=== PATIENT | male | born 1950 | race Caucasian/White ===

== ENCOUNTER 2019-06-15 20:47 | Observation (INO) | payer MEDICARE, OTHER ==
[~2019-06-15] VITALS: Ht 167.6 cm; Wt 67.1 kg
[~2019-06-15 20:47] MED LIST: AMIO200T61 PO; ASPI-611 PO; ATOR40TA7 PO; CLOP75TA35 PO; METO-384 PO; NITR0.4T51 SL
--- NOTE | 2019-06-15 20:53 | NUR ---
level 2 trauma called for elderly fall on blood thinners, charge account identification clerk aware and dr. patino at bedside.
--- NOTE | 2019-06-15 21:03 | NUR ---
DR. HUBER REQUEST BLOOD WORK FIRST AND DEPENDING ON DDIMER RESULT MAY ALSO SCAN PTS CHEST IN ADDITION TO HIS HEAD. WANTS TO DO ONLY ONE TRIP TO CT. PTS AT BEDSIDE. PT IS POLITE AND COOPERATIVE WITH ALL CARE.
[2019-06-15] MEDS ORDERED: morphine 4 MG/ML inj SYRINge IV ONE (21:20)
[2019-06-15 21:34] LABS: BASOPHILS % (AUTO) 0.2 % (0-1); EOSINOPHILS % (AUTO) 0 % (0-6); HEMATOCRIT 44.4 % (42.0-52.0); HEMOGLOBIN 15.4 g/dl (14.0-17.9); LYMPHOCYTES # (AUTO) 0.8 X10'3 (1.1-4.8); LYMPHOCYTES % (AUTO) 6.8 % (21-51); MEAN CORPUSCULAR HEMOGLOBIN 31.7 PG (27.0-31.0); MEAN CORPUSCULAR HGB CONC 34.8 g/dL (33.0-36.5); MEAN CORPUSCULAR VOLUME 91.2 FL (78-98); MEAN PLATELET VOLUME 10.1 FL (7.4-10.4); MONOCYTES # (AUTO) 0.4 X10'3 (0-0.9); MONOCYTES % (AUTO) 3.6 % (2-12); NEUTROPHILS # (AUTO) 10.1 X10'3 (1.8-7.7); NEUTROPHILS % (AUTO) 89.4 % (42-75); PLATELET COUNT 159 X10'3 (140-440); RED BLOOD COUNT 4.87 X10'6 (4.70-6.10); RED CELL DISTRIBUTION WIDTH 14.2 % (11.5-14.5); WHITE BLOOD COUNT 11.3 X10'3 (4.5-11.0)
[2019-06-15] MEDS ORDERED: tranexamic acid 100mg/ml inj. IV ONE (21:45)
[2019-06-15 21:48] LABS: D-DIMER 0.42 MG/L FEU (0-0.50); PARTIAL THROMBOPLASTIN TIME 22 SECONDS (22-32)
--- NOTE | 2019-06-15 21:48 | NUR ---
Pt. blood pressure drops to 83/[address] Gordon aware, orders for fluid bolus received
[2019-06-15] MEDS ORDERED: normal saline 1000ML IV soln IVB ONE ×2 (21:50→22:30)
[2019-06-15 21:53] LABS: ALANINE AMINOTRANSFERASE 36 U/L (12-78); ALBUMIN 3.7 G/DL (3.4-5.0); ALBUMIN/GLOBULIN RATIO 1.1 (1.1-1.5); ALKALINE PHOSPHATASE 112 IU/L (46-116); ANION GAP 12 (8-16); ASPARTATE AMINO TRANSFERASE 28 U/L (10-37); BILIRUBIN,TOTAL 0.3 MG/DL (0.1-1.0); CALCIUM 8.7 MG/DL (8.5-10.1); CHLORIDE 106 MMOL/L (99-107); CREATININE 1.15 MG/DL (0.60-1.10); GLUCOSE 198 MG/DL (70-104); SODIUM 139 MMOL/L (135-145); TOTAL PROTEIN 7.2 G/DL (6.4-8.2); TROPONIN I < 0.04 NG/ML (0.0-0.05); eGFR 63 ML/MIN
[2019-06-15 21:57] LABS: BLOOD UREA NITROGEN 17 MG/DL (7-18); BUN/CREATININE RATIO 14.8 (5.4-32.0)
--- NOTE | 2019-06-15 22:03 | NUR ---
Pt. BP 59/30, Dr. Gordon notified, order for 2L NS received. Pt. placed in Trendelenburg position
--- NOTE | 2019-06-15 22:10 | NUR ---
Pt. BP 106/78. Pt. in Trendelenburg position. Pt. has recieved 1L of NS bolus
[2019-06-15] MEDS ORDERED: iohexol 350MG/ML 100ml bottle IV ONE (22:37)
[2019-06-15] MEDS ORDERED: METO-395 PO (23:25)
[2019-06-16 00:35] LABS: CLARITY,URINE CLEAR (Clear); COLOR,URINE YELLOW (Yellow); GLUCOSE, URINE NEGATIVE (Neg); KETONES,URINE NEGATIVE (Neg); LEUKOCYTE ESTERASE ,URINE NEGATIVE (Neg); NITRITES, URINE NEGATIVE (Neg); OCCULT BLOOD,URINE NEGATIVE (Neg); PH,URINE 5.5 (4.8-8.0); PROTEIN,URINE NEGATIVE (Neg); UROBILINOGEN,URINE 0.2 E.U/dL (0.2-1.0)
[2019-06-16 00:37] LABS: UA COLLECTION TYPE CLN CATCH MIDSTREAM
[2019-06-16] MEDS ORDERED: normal saline 1000ML IV soln IVB ONE (01:35)
[2019-06-16 02:45] LABS: TROPONIN I < 0.04 NG/ML (0.0-0.05)
--- NOTE | 2019-06-16 02:48 | NUR ---
pt with stable vs, flu swab negative, awaiting 3 hr trop result.. 4th liter ns infused
--- NOTE | 2019-06-16 02:53 | NUR ---
dr. patino at bedside. he requests a gait test .
--- NOTE | 2019-06-16 03:34 | NUR ---
dr patino at bedside when pt ambulating. pt with a lot of pain to his right hip with ambulating, but he reports improvment as he was unable to walk at all after he first fell. He reports no dizziness, but some weakness. Pt continues with stable vs and normaltensive. md to order norco 5/325 and see how pt does, if bp ok, then Pt can be discharged home with norco for pain management. If not, Pt to likely be admitted.
[2019-06-16] MEDS ORDERED: HYDROcodone/acetaminophen 5mg/325mg tablet PO ONE (03:40)
[2019-06-16] MEDS ORDERED: magnesium 4gm in 100ml NS 100 ML IV PRN (04:30)
[2019-06-16] MEDS ORDERED: potassium CL 10mEq/100ml bag 100 ML IV PRN ×2 (04:30)
[2019-06-16] MEDS ORDERED: nitroGLYCERIN 0.4mg SUBLingual tab SL PRN (04:30)
[2019-06-16] MEDS ORDERED: mag hydrox/Alum hydrox/simeth 30ml oral suspension PO PRN (04:30)
[2019-06-16] MEDS ORDERED: magnesium Cl slow-release 64mg tablet PO PRN (04:30)
[2019-06-16] MEDS ORDERED: magnesium hydroxide 30ml (MOM) UD suspension PO PRN (04:30)
[2019-06-16] MEDS ORDERED: acetaminophen 325mg tablet PO PRN ×2 (04:30)
[2019-06-16] MEDS ORDERED: fentaNYL/PF 50MCG/1 ML 2ML syringe IV ONE (04:30)
[2019-06-16] MEDS ORDERED: magnesium 2GM in 50ml NS 50 ML IV PRN (04:30)
[2019-06-16] MEDS ORDERED: ondansetron/PF 4mg/2ml inj IV PRN (04:30)
[2019-06-16] MEDS ORDERED: potassium Cl 20 mEq SR tablet PO PRN ×2 (04:30)
[2019-06-16] MEDS ORDERED: diphenhydrAMINE 50 mg/ml inj IV ONE (04:50)
--- NOTE | 2019-06-16 04:50 | NUR ---
pt to be admitted, orders written for admission by dr. zheng, awaiting ipa. pts just left. pt requesting somethign to help him sleep tonight. benedryl ordered by dr. patino now. Pt reprots he is ok at this time and will only request sleep aid tonight.
[2019-06-16] MEDS ORDERED: K and/or MAG REPLACEMENT MC SCH (08:00)
[2019-06-16] MEDS ORDERED: metoprolol succinate 25mg (24-HOUR) SR. Tablet PO SCH ×2 (08:00)
[2019-06-16] MEDS ORDERED: aspirin 81mg tablet.DR PO SCH (08:00)
[2019-06-16] MEDS ORDERED: clopidogrel 75mg tablet PO SCH (08:00)
[2019-06-16] MEDS ORDERED: enoxaparin 40mg/0.4ml syringe SQ SCH (08:00)
[2019-06-16 12:06] VITALS: BP 109/78
--- NOTE | 2019-06-16 13:30 | NUR ---
Patient in room [facility]. I have received report from Rodolfo ADAMS and had the opportunity to ask questions and assume patient care.
[2019-06-16] MEDS ORDERED: TRAM50TA2 PO (14:36)
[2019-06-16 15:25] VITALS: BP_SYST 111; BP_SYST 121; BP_SYST 124; BP_DIAS 73; BP_DIAS 85; BP_DIAS 88
--- NOTE | 2019-06-16 16:14 | NUR ---
Patient asymptomatic for orthostatic hypotension. Seen by DR Harvey is for discharge. All cares given. DC instructions given to patient. Patient appears stable for DC. prescription called through to [facility] on [address]. . patient awaiting ride at this time.
--- NOTE | 2019-06-16 16:42 | NUR ---
patients here to chicken picker patient. patient DC home via private car in stable condition. 1645hrs
[2019-06-16] MEDS ORDERED: atorvastatin 20mg tablet PO SCH (21:00)
--- NOTE | 2019-06-19 15:03 | NUR ---
Case Management DC follow-up: LM/FRED r/t post DC and inviting pt to return call with any questions or concerns
== END 2019-06-16 16:48 | disposition home or self-care (01) ==
LOC: ER 20:48 → ED HOLD 06-16 04:27 → SUR 3N 06-16 12:32
PROVIDERS: ADMIT Hospitalist; ATTEND Hospitalist
DX: R55 Syncope and collapse (principal); I25.10 Atherosclerotic heart disease of native coronary artery without angina pectoris; Z95.5 Presence of coronary angioplasty implant and graft; Z79.82 Long term (current) use of aspirin; Z79.899 Other long term (current) drug therapy; W18.39XA Other fall on same level, initial encounter; Y93.89 Activity, other specified; Y92.89 Other specified places as the place of occurrence of the external cause
CPT/HCPCS: 36415; 71045; 71275; 74177; 80053; 81003; 83880; 84484; 85025; 85379; 85610; 85730; 87502; 87503; 93005; 96361; 96374; 96375; 99284; G0378; J2270; J3010; Q9967

== ENCOUNTER 2021-01-14 18:50 | Emergency (ER) | payer OTHER, MEDICARE ==
[~2021-01-14] VITALS: Ht 170.2 cm; Wt 64.5 kg
[~2021-01-14 18:50] MED LIST changes: -AMIO200T61 PO; +CLOP75TA34 PO; -CLOP75TA35 PO; -METO-384 PO; +METO-395 PO
[2021-01-14] MEDS ORDERED: famotidine/PF 10 mg/ml inj IV ONE ×2 (19:00→22:25)
[2021-01-14] MEDS ORDERED: diphenhydrAMINE 50 mg/ml inj IV ONE ×3 (19:00→22:25)
[2021-01-14] MEDS ORDERED: predniSONE 20 mg tablet PO ONE (19:00)
[2021-01-14] MEDS ORDERED: epiNEPHrine 1 mg/ml inj IM STA ×2 (19:06→20:58)
[2021-01-14] MEDS ORDERED: normal saline 1000ml 1,000 ML IV ONE (19:15)
[2021-01-14] MEDS ORDERED: PRED20TA PO (19:41)
[2021-01-14] MEDS ORDERED: DIPH25CA83 PO (19:41)
--- NOTE | 2021-01-14 19:54 | NUR ---
pt denies SOB or thightness in throat. Lungs clear, no itching post medication. Pt verbalize feeling much better
[2021-01-14] MEDS ORDERED: epiNEPHrine 1 mg/ml inj SQ ONE (22:25)
[2021-01-14] MEDS ORDERED: FAMO-128 PO (22:28)
[2021-01-14 23:53] VITALS: BP 121/90
== END 2021-01-14 23:58 | disposition home or self-care (01) ==
LOC: ER 18:51
DX: R21 Rash and other nonspecific skin eruption (principal); T44.5X5A Adverse effect of predominantly beta-adrenoreceptor agonists, initial encounter; I25.10 Atherosclerotic heart disease of native coronary artery without angina pectoris; Z98.890 Other specified postprocedural states; Z79.82 Long term (current) use of aspirin; Z79.899 Other long term (current) drug therapy; Y92.89 Other specified places as the place of occurrence of the external cause
CPT/HCPCS: 96361; 96372; 96374; 96375; 96376; 99291; J0171; J1200; J3490; J7030; J7512